=== PATIENT | female | born 1985 | race Native Hawaiian/Other Pacific Islander ===

== ENCOUNTER 2018-08-20 16:42 | Emergency (ER) | payer OTHER ==
[~2018-08-20] VITALS: Ht 162.6 cm; Wt 99.8 kg
[2018-08-20 17:13] LABS: PLATELET COUNT 127 K/uL (152-353)
[2018-08-20 17:21] LABS: POTASSIUM 3.8 mmol/L (3.6-5.2)
[2018-08-20 17:57] VITALS: BP 127/40; TEMP 97.8
== END 2018-08-20 18:02 | disposition home or self-care (01) ==
LOC: ED 16:42
PROVIDERS: Family Medicine
DX: K52.89 Other specified noninfective gastroenteritis and colitis (principal)
CPT/HCPCS: 80053; 82150; 83690; 85027; 96360; 99284

== ENCOUNTER 2018-09-19 22:13 | Emergency (ER) | payer OTHER ==
[~2018-09-19] VITALS: Ht 162.6 cm; Wt 98.7 kg
[2018-09-20 00:49] VITALS: BP 122/81; TEMP 98.6
== END 2018-09-20 00:49 | disposition home or self-care (01) ==
LOC: ED 22:13
DX: M54.5 Low back pain (principal)
CPT/HCPCS: 96372; 99282; J1885

== ENCOUNTER 2018-09-22 10:50 | Outpatient (CLI) | payer OTHER | END 2018-09-22 20:31 | disposition home or self-care (01) | LOC: RAD 10:50 | DX: M54.6 Pain in thoracic spine (principal) ==

== ENCOUNTER 2018-09-27 18:01 | Emergency (ER) | payer OTHER ==
[~2018-09-27] VITALS: Ht 162.6 cm; Wt 99.8 kg
[2018-09-27] MEDS ORDERED: MOBIC15 MG PO (19:13)
[2018-09-27] MEDS ORDERED: NEURONTIN 100M100 MG PO (19:13)
[2018-09-27] MEDS ORDERED: BACL10TA4 PO (19:14)
[2018-09-27 19:51] VITALS: BP 129/62; TEMP 97.9
== END 2018-09-27 19:50 | disposition home or self-care (01) ==
LOC: ED 18:01
DX: S93.492A Sprain of other ligament of left ankle, initial encounter (principal)
CPT/HCPCS: 96372; 99283; J1885

== ENCOUNTER 2020-08-07 09:07 | Emergency (ER) | payer OTHER ==
[~2020-08-07] VITALS: Ht 162.6 cm; Wt 99.8 kg
[~2020-08-07 09:07] MED LIST: BACL10TA4 PO; MOBIC15 MG PO; NEURONTIN 100M100 MG PO
[2020-08-07 09:22] VITALS: BP 146/86; TEMP 97.9
== END 2020-08-07 10:13 | disposition home or self-care (01) ==
LOC: ED 09:07
DX: J06.9 Acute upper respiratory infection, unspecified (principal); F17.210 Nicotine dependence, cigarettes, uncomplicated
CPT/HCPCS: 87651; 99282

== ENCOUNTER 2020-11-30 18:17 | Emergency (ER) | payer OTHER | END 2020-11-30 20:22 | disposition home or self-care (01) | LOC: ED 18:17 | PROC: 2W3RX1Z Immobilization of Left Lower Leg using Splint (ICD-10-PCS; principal; 2020-11-30) | DX: S90.02XA Contusion of left ankle, initial encounter (principal); S90.32XA Contusion of left foot, initial encounter; S96.812A Strain of other specified muscles and tendons at ankle and foot level, left foot, initial encounter; M25.572 Pain in left ankle and joints of left foot; W18.39XA Other fall on same level, initial encounter; Y92.89 Other specified places as the place of occurrence of the external cause | CPT/HCPCS: 96372; 99283; J1885 ==

== ENCOUNTER 2021-03-23 17:53 | Emergency (ER) | payer OTHER ==
[~2021-03-23] VITALS: Ht 162.6 cm; Wt 99.8 kg
[2021-03-23 18:31] LABS: PLATELET COUNT 144 K/uL (152-353)
[2021-03-23 18:41] LABS: POTASSIUM 3.4 mmol/L (3.6-5.2)
[2021-03-23 19:07] LABS: PARTIAL THROMBOPLASTIN TIME 26.1 SECONDS (24.5-33.6)
[2021-03-23 19:30] VITALS: BP 136/88; TEMP 97.5
== END 2021-03-23 19:30 | disposition home or self-care (01) ==
LOC: ED 17:53
PROVIDERS: Hospitalist
DX: R07.89 Other chest pain (principal); R09.1 Pleurisy
CPT/HCPCS: 36415; 80053; 82550; 83880; 84484; 85027; 85379; 85610; 85730; 93005; 96374; 96375; 99284; J1100; J1885

== ENCOUNTER 2021-05-16 22:18 | Emergency (ER) | payer OTHER ==
[~2021-05-16] VITALS: Ht 162.6 cm; Wt 99.3 kg
[2021-05-17 00:24] VITALS: BP 128/73; TEMP 98.5
== END 2021-05-17 00:24 | disposition home or self-care (01) ==
LOC: ED 22:18
DX: H65.191 Other acute nonsuppurative otitis media, right ear (principal)
CPT/HCPCS: 96372; 99283; J1885

== ENCOUNTER 2021-12-30 06:27 | Emergency (ER) | payer OTHER ==
[~2021-12-30] VITALS: Ht 162.6 cm; Wt 99.8 kg
[2021-12-30 06:30] VITALS: TEMP 98.6
[2021-12-30 10:00] VITALS: BP 128/70
== END 2021-12-30 10:21 | disposition home or self-care (01) ==
LOC: ED 06:27
DX: J20.9 Acute bronchitis, unspecified (principal); F17.210 Nicotine dependence, cigarettes, uncomplicated; Z20.822 Contact with and (suspected) exposure to COVID-19
CPT/HCPCS: 87502; 87635; 87651; 94664; 99283; U0003